=== PATIENT | female | born 1955 | race American Indian/Alaskan Native ===

== ENCOUNTER 2017-09-18 19:09 | Emergency (ER) | payer SELFPAY ==
[2017-09-19] MEDS ORDERED: DECADRON IV ONE (02:20)
[2017-09-19] MEDS ORDERED: MOTRIN PO ONE (02:20)
--- NOTE | 2017-09-19 02:24 | Emergency Department Report ---
ED Rash HPI - HPI Chief Complaint: Skin Rash Stated Complaint: INSECT BITE Time Seen by Provider: 09/19/17 01:13 Duration: 2 Days Location: Neck, Abdomen (right side of abdomen) Suspected Cause: Insect Rash Symptoms: Yes Itching, Yes Blistering, No Facial Swelling, No Tongue/Oral Swelling, No Breathing Difficulties, No Choking Sensation, No Wheezing/Dyspnea, No Peeling, No Fever, No Lightheaded, No Malaise, No Myalgias Severity: mild Other History: This is a 61 y.o. female that presents with bumps on left side of neck and right side of abdomen from presumed insect bites. Patient reports feeling itching and noticed bumps on the side of neck Monday while visiting her daughter. States something bit her inside her daughter house. She is the only one in the home who has bumps and itching. She started scratching bumps and noticed yesterday they migrated to right side of abdomen. They are red and itch all day. Denies difficulty breathing, swelling, chest pain, SOB, fever, and body aches. ED Review of Systems ROS: Stated complaint: INSECT BITE Other details as noted in HPI Constitutional: denies: chills, fever Respiratory: denies: cough, shortness of breath, SOB with exertion, wheezing Cardiovascular: denies: chest pain, palpitations, edema, syncope Gastrointestinal: denies: abdominal pain, nausea, vomiting, diarrhea Skin: rash (puritic rash to left side of neck and right side of abdomen). denies: lesions Neurological: denies: headache, weakness, paresthesias Psychiatric: denies: anxiety, depression ED Past Medical Hx - Past Medical History Previous Medical History?: No - Surgical History Additional Surgical History: c sect x 2; partial hysterectomy - Social History Smoking Status: Never Smoker Substance Use Type: None - Medications Home Medications: Home Medications Medication Instructions Recorded Confirmed Last Taken Type Cetirizine HCl [Zyrtec] 10 mg PO DAILY #30 tablet 09/19/17 Unknown Rx Pramoxine HCl/Zinc Acetate 177 ml TP BID #1 lotion 09/19/17 Unknown Rx [Caldyphen Clear Lotion] Triamcinolone 0.1% [Kenalog 0.1% 1 applic TP TID #60 gram 09/19/17 Unknown Rx CREAM] Rash Exam - Exam General: Vital signs noted. No distress. Alert and acting appropriately. HEENT: No Periorbital Edema, No Conjuctival Injection, No Chemosis, No Perioral Edema, No Tongue Edema, No Uvular Edema, No Compromised Airway, No Drooling Lungs: Yes Good Air Exchange (Normal Breath Sounds), No Wheezes, No Ronchi, No Stridor, No Cough, No Labored Respirations, No Retractions, No Use of Accessory Muscles, No Other Abnormal Lung Sounds Heart: Yes Regular, No Murmur Skin: Yes Maculopapular Rash (3-5 mm erythematous nodules on left side of neck and right side of abdomen, tender), No Urticarial Rash, No Morbilliform rash, No Bulla(e), No Excoriations, No Weeping, No Tenderness, No Erythema, No Edema, No Encrustations, No Other Other: Positive: Abdomen Normal, Neurologic Normal, Musculoskeletal Normal ED Course Vital Signs 09/18/17 19:37 Temperature 98.4 F Pulse Rate 65 Respiratory 18 Rate Blood Pressure 130/74 O2 Sat by Pulse 100 Oximetry ED Medical Decision Making - Medical Decision Making This is a 61 y.o. female with puritic rash to left side of neck and right side of abdomen. Patient examined by me. No distress noted. Vitals stable. Tetanus up to date. Physical assessment susceptible of insect bite. Given decadron 8 mg IM and ibuprofen 800 mg po once in ER. Start triamcinolone cream, zyrtec, and caldyphen clear lotion. F/u with PCP in 24-72 hours. Discussed plan with patient and agreed to plan. Critical care attestation.: If time is entered above; I have spent that time in minutes in the direct care of this critically ill patient, excluding procedure time. ED Disposition Clinical Impression: Insect bite Qualifiers: Encounter type: initial encounter Qualified Code(s): W57.XXXA - Bitten or stung by nonvenomous insect and other nonvenomous arthropods, initial encounter Disposition: TO HOME OR SELFCARE Is pt being admited?: No Does the pt Need Aspirin: No Condition: Stable Instructions: Insect Bite or Sting (ED) Additional Instructions: Wash area with soap and water daily. Apply cool cloth or ice to are to decrease swelling. Follow up with primary care provider in 2-3 days. Return to ER if swelling, redness, discharge, and fever. Prescriptions: Cetirizine HCl [Zyrtec] 10 mg PO DAILY #30 tablet Pramoxine HCl/Zinc Acetate [Caldyphen Clear Lotion] 177 ml TP BID #1 lotion Triamcinolone 0.1% [Kenalog 0.1% CREAM] 1 applic TP TID #60 gram Referrals: MALIKA RANGEL MD [Staff Physician] - 3-[address] [facility] [Outside] - 3-5 Days [facility] [Outside] - 3-5 Days Forms: Work/School Release Form(ED) Time of Disposition: 02:26 Print Language: FRENCH
[2017-09-19 03:48] VITALS: BP 126/70
== END 2017-09-19 03:20 | disposition home or self-care (01) ==
LOC: ED 19:09
DX: S10.96XA Insect bite of unspecified part of neck, initial encounter (principal); S30.861A Insect bite (nonvenomous) of abdominal wall, initial encounter; W57.XXXA Bitten or stung by nonvenomous insect and other nonvenomous arthropods, initial encounter; Y93.89 Activity, other specified; Y92.89 Other specified places as the place of occurrence of the external cause; Y99.8 Other external cause status
CPT/HCPCS: 96374; 99283; J1100

== ENCOUNTER 2018-08-24 09:04 | Outpatient (CLI) | payer BC ==
--- NOTE | 2018-08-24 09:49 | XRay Report ---
CERVICAL SPINE RADIOGRAPHS INDICATION: Cervicalgia, bilateral shoulder and arm pain. COMPARISON: None similar. FINDINGS: AP, lateral and open-mouth views of the cervical spine demonstrate obscured dens due to overlying structures. Few small radiopaque dental material. Imaged lateral masses grossly unremarkable. Clear visualized lung apices. Normal prevertebral soft tissues and preserved airway. Intact craniocervical articulation on the lateral view with adequate visualization upto T1. C2-C3 spinous processes appear partly fused. Approximately 2 mm retrolisthesis of C5 with respect to levels above and below. Mild C5-C7 degenerative spurring also noted. Disc heights fairly preserved. CONCLUSION: No acute cervical spine radiographic abnormality with few other findings, as above. Thank you for the opportunity to participate in this patient's care.
== END 2018-08-24 09:05 | disposition home or self-care (01) ==
LOC: XRAY 09:04
DX: M43.12 Spondylolisthesis, cervical region (principal); Z90.710 Acquired absence of both cervix and uterus
CPT/HCPCS: 72040

== ENCOUNTER 2019-02-17 23:58 | Emergency (ER) | payer BC ==
[2019-02-18 00:57] VITALS: BP 126/68
[2019-02-18] MEDS ORDERED: FAMOTIDINE 20 MG TAB PO ONE (02:02)
[2019-02-18] MEDS ORDERED: dexAMETHasone 4 MG/ML VIAL IM ONE (02:02)
[2019-02-18] MEDS ORDERED: diphenhydrAMINE 25 MG CAP PO ONE (02:02)
--- NOTE | 2019-02-18 02:39 | Emergency Department Report ---
- General Chief complaint: Skin Rash Stated complaint: MOSQUITO BITES Time Seen by Provider: 02/18/19 01:57 Source: patient Mode of arrival: Ambulatory Limitations: No Limitations - History of Present Illness Initial comments: Patient is a 63-year-old female who presents to the emergency room after enduring multiple mosquito bites to the anterior and posterior neck and left upper arm that occurred last night. States she was outside at work when she started to get bites. States she has constantly been itching and scratching. She states that she has noticed swelling and redness around the bites. Patient denies any difficulty breathing, feeling of throat closing, difficulty swallowing. Patient denies any past medical history. She states she has an allergy to sulfa, penicillin, codeine. - Related Data Previous Rx's Medication Instructions Recorded Last Taken Type Cetirizine HCl [Zyrtec 10mg tab] 10 mg PO DAILY #30 tablet 09/19/17 Unknown Rx Pramoxine HCl/Zinc Acetate 177 ml TP BID #1 lotion 09/19/17 Unknown Rx [Caldyphen Clear Lotion] Triamcinolone 0.1% [Kenalog 0.1% 1 applic TP TID #60 gram 09/19/17 Unknown Rx CREAM] Allergies Allergy/AdvReac Type Severity Reaction Status Date / Time codeine Allergy Rash Verified 03/12/13 09:29 Penicillins Allergy Rash Verified 03/12/13 09:29 Sulfa (Sulfonamide Allergy Rash Verified 03/12/13 09:29 Antibiotics) Abscess Boil HPI - HPI Chief Complaint: Skin Rash Stated Complaint: MOSQUITO BITES Time Seen by Provider: 02/18/19 01:57 Home Medications: Previous Rx's Medication Instructions Recorded Last Taken Type Cetirizine HCl [Zyrtec 10mg tab] 10 mg PO DAILY #30 tablet 09/19/17 Unknown Rx Pramoxine HCl/Zinc Acetate 177 ml TP BID #1 lotion 09/19/17 Unknown Rx [Caldyphen Clear Lotion] Triamcinolone 0.1% [Kenalog 0.1% 1 applic TP TID #60 gram 09/19/17 Unknown Rx CREAM] Allergies/Adverse Reactions: Allergies Allergy/AdvReac Type Severity Reaction Status Date / Time codeine Allergy Rash Verified 03/12/13 09:29 Penicillins Allergy Rash Verified 03/12/13 09:29 Sulfa (Sulfonamide Allergy Rash Verified 03/12/13 09:29 Antibiotics) ED Review of Systems ROS: Stated complaint: MOSQUITO BITES Other details as noted in HPI Comment: All other systems reviewed and negative ED Past Medical Hx - Past Medical History Previous Medical History?: No - Surgical History Past Surgical History?: Yes Additional Surgical History: c sect x 2; partial hysterectomy - Social History Smoking Status: Never Smoker Substance Use Type: None - Medications Home Medications: Home Medications Medication Instructions Recorded Confirmed Last Taken Type Cetirizine HCl [Zyrtec 10mg tab] 10 mg PO DAILY #30 tablet 09/19/17 Unknown Rx Pramoxine HCl/Zinc Acetate 177 ml TP BID #1 lotion 09/19/17 Unknown Rx [Caldyphen Clear Lotion] Triamcinolone 0.1% [Kenalog 0.1% 1 applic TP TID #60 gram 09/19/17 Unknown Rx CREAM] ED Physical Exam - General Limitations: No Limitations General appearance: alert, in no apparent distress - Head Head exam: Present: atraumatic, normocephalic - Eye Eye exam: Present: normal appearance - ENT ENT exam: Present: normal orophraynx, mucous membranes moist - Respiratory Respiratory exam: Present: normal lung sounds bilaterally. Absent: respiratory distress, wheezes, rales, rhonchi, stridor, chest wall tenderness, accessory muscle use, decreased breath sounds, prolonged expiratory - Cardiovascular Cardiovascular Exam: Present: regular rate, normal rhythm, normal heart sounds. Absent: systolic murmur, diastolic murmur, rubs, gallop - Neurological Exam Neurological exam: Present: alert, oriented X3 - Psychiatric Psychiatric exam: Present: normal affect, normal mood - Skin Skin exam: Present: warm, dry, other (several small erythematous papules to the anterior neck, posterior neck, and left forearm, surrounding erythema and edema which is greatest at the left forearm, no skin denuding, no blistering, no necrosis) ED Course Vital Signs 02/18/19 00:02 Temperature 98.5 F Pulse Rate 91 H Respiratory 18 Rate Blood Pressure 126/68 O2 Sat by Pulse 96 Oximetry ED Medical Decision Making - Medical Decision Making Patient is a 63-year-old female who presents to the emergency room after enduring multiple mosquito bites to the anterior and posterior neck and left upper arm that occurred last night. States she was outside at work when she started to get bites. States she has constantly been itching and scratching. She states that she has noticed swelling and redness around the bites. Patient denies any difficulty breathing, feeling of throat closing, difficulty swallowing. Patient denies any past medical history. She states she has an allergy to sulfa, penicillin, codeine. vitals are normal. on exam: several small erythematous papules to the anterior neck, posterior neck, and left forearm, surrounding erythema and edema which is greatest at the left forearm, no skin denuding, no blistering, no necrosis, no signs of angioedema. Patient given Benadryl, Pepcid, dexamethasone while in the emergency department and symptoms improved. advised pt May take Benadryl and Pepcid [id number]. may also use cortisone ointment [id number]. Follow-up with a primary care doctor in the next 2-3 days. Return to the emergency room for any new or worsening symptoms. - Differential Diagnosis allergic reaction, insect bite/sting Critical care attestation.: If time is entered above; I have spent that time in minutes in the direct care of this critically ill patient, excluding procedure time. ED Disposition Clinical Impression: Insect bites Qualifiers: Encounter type: initial encounter Site of insect bite: other part of neck Qualified Code(s): S10.86XA - Insect bite of other specified part of neck, initial encounter Allergic reaction Qualifiers: Encounter type: initial encounter Qualified Code(s): T78.40XA - Allergy, unspecified, initial encounter Disposition: DC-01 TO HOME OR SELFCARE Is pt being admited?: No Does the pt Need Aspirin: No Condition: Stable Instructions: Insect Bite or Sting (ED), Allergies (ED) Additional Instructions: May take Benadryl and Pepcid [id number]. may also use cortisone ointment [id number]. Follow-up with a primary care doctor in the next 2-3 days. R eturn to the emergency room for any new or worsening symptoms. Referrals: [facility] [Provider Group] - 2-3 Days Time of Disposition: 03:09 Print Language: YAKUT
== END 2019-02-18 03:24 | disposition home or self-care (01) ==
LOC: ED 23:58
DX: S10.86XA Insect bite of other specified part of neck, initial encounter (principal); T78.40XA Allergy, unspecified, initial encounter; X58.XXXA Exposure to other specified factors, initial encounter; Y93.89 Activity, other specified; Y92.89 Other specified places as the place of occurrence of the external cause; Y99.8 Other external cause status
CPT/HCPCS: 96372; 99282; J1100

== ENCOUNTER 2020-02-12 16:34 | Emergency (ER) | payer SELFPAY ==
[2020-02-12 17:01] VITALS: BP 117/53
--- NOTE | 2020-02-12 19:38 | Emergency Department Report ---
ED Extremity Problem HPI - General Chief complaint: Extremity Problem,Nontraumatic Stated complaint: LFT TOE INSECT BITE Time Seen by Provider: 02/12/20 19:28 Source: patient Mode of arrival: Ambulatory Limitations: No Limitations - History of Present Illness Initial comments: 64-year-old -[place] female presents to the emergency room complaining of a insect bite to her left second toe. Patient states that it hurts and itches. Patient is taken nothing for her symptoms. Patient denies any direct injury. MD Complaint: extremity pain Onset/Timin -: days(s) Location: left, toe (Second toe) History of Same: No -: Yes myalgia, No arthralgia, No fever Radiation: none Severity scale (0 -10): 7 Quality: aching Consistency: constant Improves with: nothing Worsens with: walking - Related Data Previous Rx's Medication Instructions Recorded Last Taken Type Cetirizine HCl [Zyrtec 10mg tab] 10 mg PO DAILY #30 tablet 09/19/17 Unknown Rx Pramoxine HCl/Zinc Acetate 177 ml TP BID #1 lotion 09/19/17 Unknown Rx [Caldyphen Clear Lotion] Triamcinolone 0.1% [Kenalog 0.1% 1 applic TP TID #60 gram 09/19/17 Unknown Rx CREAM] Allergies Allergy/AdvReac Type Severity Reaction Status Date / Time codeine Allergy Rash Verified 03/12/13 09:29 Penicillins Allergy Rash Verified 03/12/13 09:29 Sulfa (Sulfonamide Allergy Rash Verified 03/12/13 09:29 Antibiotics) ED Review of Systems ROS: Stated complaint: LFT TOE INSECT BITE Other details as noted in HPI Comment: All other systems reviewed and negative ED Past Medical Hx - Past Medical History Previous Medical History?: No - Surgical History Past Surgical History?: Yes Additional Surgical History: c sect x 2; partial hysterectomy - Social History Smoking Status: Never Smoker Substance Use Type: None - Medications Home Medications: Home Medications Medication Instructions Recorded Confirmed Last Taken Type Cetirizine HCl [Zyrtec 10mg tab] 10 mg PO DAILY #30 tablet 09/19/17 Unknown Rx Pramoxine HCl/Zinc Acetate 177 ml TP BID #1 lotion 09/19/17 Unknown Rx [Caldyphen Clear Lotion] Triamcinolone 0.1% [Kenalog 0.1% 1 applic TP TID #60 gram 09/19/17 Unknown Rx CREAM] ED Physical Exam - General Limitations: No Limitations General appearance: alert, in no apparent distress - Head Head exam: Present: atraumatic, normocephalic - Eye Eye exam: Present: normal appearance - ENT ENT exam: Present: mucous membranes moist - Neck Neck exam: Present: normal inspection - Expanded Lower Extremity Exam Right Foot/Toe exam: Present: full ROM, tenderness (2nd toe), swelling (2nd toe), erythema (2nd toe) Neuro vascular tendon exam: Present: no vascular compromise - Back Exam Back exam: Present: normal inspection - Neurological Exam Neurological exam: Present: alert, oriented X3, normal gait - Psychiatric Psychiatric exam: Present: normal affect, normal mood - Skin Skin exam: Present: warm, dry ED Course Vital Signs 02/12/20 17:00 Temperature 98.7 F Pulse Rate 65 Respiratory 16 Rate Blood Pressure 117/53 [Right] O2 Sat by Pulse 97 Oximetry ED Medical Decision Making - Medical Decision Making 64-year-old -[place] female presents to the emergency room complaining of a insect bite to her left second toe. Patient states that it hurts and itches. Patient is taken nothing for her symptoms. Patient denies any direct injury. Critical care attestation.: If time is entered above; I have spent that time in minutes in the direct care of this critically ill patient, excluding procedure time. ED Disposition Clinical Impression: Toe pain, right Disposition: DC-01 TO HOME OR SELFCARE Is pt being admited?: No Does the pt Need Aspirin: No Condition: Stable Additional Instructions: Please take Tylenol or ibuprofen as needed for pain. Referrals: PRIMARY CARE [Primary Care Provider] - 3-5 Days [facility] [Provider Group] - 3-5 Days Forms: Work/School Release Form(ED)
[2020-02-12] MEDS ORDERED: IBUPROFEN 600 MG TAB PO ONE (19:43)
== END 2020-02-12 19:45 | disposition home or self-care (01) ==
LOC: ED 16:34
DX: M79.675 Pain in left toe(s) (principal); Z90.710 Acquired absence of both cervix and uterus; Z79.899 Other long term (current) drug therapy; Z88.0 Allergy status to penicillin; Z88.2 Allergy status to sulfonamides; Z88.6 Allergy status to analgesic agent
CPT/HCPCS: 99281